=== PATIENT | female | born 1970 | race Caucasian/White ===

== ENCOUNTER → 2016-10-27 | Outpatient (CLI) | payer OTHER | LOC: FIMAGING 16:01 | PROVIDERS: ATTEND Obstetrics & Gynecology | DX: Z12.31 Encounter for screening mammogram for malignant neoplasm of breast (principal) | CPT/HCPCS: G0202 ==

== ENCOUNTER 2017-04-04 05:44 | Day surgery (SDC) | payer OTHER ==
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
[2017-04-04] MEDS ORDERED: LIDOCAINE 1% 2 ML INJ ID PRN (05:47)
[2017-04-04] MEDS ORDERED: LR 1,000 ML IV ONE (05:47)
[2017-04-04] MEDS ORDERED: DOXYCYCLINE INJ 100 MG in NS 250 ML IV ONE (06:00)
[2017-04-04] MEDS ORDERED: MIDAZOLAM 2 MG/2 ML VIAL IVP ONE (07:10)
[2017-04-04] MEDS ORDERED: SILVER NITRATE APPLICATOR 1 APPL TP ONE (07:10)
--- NOTE | 2017-04-04 07:10 | PDANEPAE ---
ANE History of Present Illness hysteroscopy ANE Past Medical History - Cardiovascular History Hx Hypertension: No Hx Arrhythmias: No Hx Coronary Artery / Peripheral Vascular Disease: No Hx CHF / Valvular Disease: No Hx Palpitations: No - Pulmonary History Hx COPD: No Hx Asthma/Reactive Airway Disease: No Hx Recent Upper Respiratory Infection: No Hx Oxygen in Use at Home: No Hx Sleep Apnea: No Sleep Apnea Screening Result - Last Documented: Negative - Neurologic History Hx Cerebrovascular Accident: No - Endocrine History Hx Diabetes: No - Renal History Hx Renal Disorders: No - Liver History Hx Hepatic Disorders: No - Cancer History Hx Cancer: No - Congenital Disorder History Hx Congenital Disorders: No - GI History Hx Gastrointestinal Disorders: No - Surgical History Prior Surgeries: ACL 1991. Shoulder 2016. breast reduction 1988 ANE Review of Systems Review of Systems: - Exercise capacity Exercise capacity: >=4 METS METS (RN): 6 METS ANE Patient History - Allergies Allergies/Adverse Reactions: No Known Allergies Allergy (Unverified 08/14/13 20:25) - Home Medications Home Medications: NK [No Known Home Meds] 08/14/13 [Last Taken Unknown] - NPO status NPO Since - Liquids (Date): 04/03/17 NPO Since - Liquids (Time): 20:00 NPO Since - Solids (Date): 04/03/17 NPO Since - Solids (Time): 19:00 - Anes Hx Anes Hx: no prior problems - Smoking Hx Smoking Status: Never smoked - Family Anes Hx Family Hx Anesthesia Complications: none ANE Labs/Vital Signs - Vital Signs Blood Pressure: 121/80 Heart Rate: 71 Respiratory Rate: 16 O2 Sat (%): 98 Height: 154.94 cm Weight: 52.163 kg ANE Physical Exam - Airway Mallampati Score: Class 2 Mouth exam: normal dental/mouth exam - Pulmonary Pulmonary: no respiratory distress - Cardiovascular Cardiovascular: regular rate and rhythym - ASA Status ASA Status: I ANE Anesthesia Plan Anesthesia Plan: GA w LMA
[2017-04-04] MEDS ORDERED: DEXAMETHASONE 4 MG/ML VIAL ONE (07:21)
[2017-04-04] MEDS ORDERED: fentaNYL 100 MCG/2 ML INJ ONE ×2 (07:21→08:44)
[2017-04-04] MEDS ORDERED: ONDANSETRON 4 MG/2 ML VIAL ONE (07:21)
[2017-04-04] MEDS ORDERED: LIDOCAINE 2% 5 ML SDV ONE (07:21)
[2017-04-04] MEDS ORDERED: PROPOFOL 200 MG/20 ML VIAL ONE (07:21)
[2017-04-04] MEDS ORDERED: KETOROLAC 30 MG/1 ML SDV ONE (07:21)
[2017-04-04] MEDS ORDERED: METOPROLOL TARTRATE 5 MG/5 ML INJ ONE (07:48)
[2017-04-04] MEDS ORDERED: IBUPROFEN 600 MG TAB PO PRN (08:41)
--- NOTE | 2017-04-04 08:41 | PDHPUP ---
History & Physical Update H&P update statement: This history and physical update is based on an assessment of the patient which was completed after admission or registration (within 24 hours), but prior to the surgery/procedure.
[2017-04-04] MEDS ORDERED: HYDROCODONE/APAP 5/325 TAB PO PRN (08:42)
[2017-04-04] MEDS ORDERED: ONDANSETRON 4 MG/2 ML VIAL IVP PRN (08:44)
[2017-04-04] MEDS ORDERED: ALBUTEROL 3 ML DEYVIAL IH PRN (08:44)
[2017-04-04] MEDS ORDERED: MEPERIDINE 25 MG/ML SYR IVP PRN (08:44)
[2017-04-04] MEDS ORDERED: LR 500 ML IV PRN (08:44)
[2017-04-04] MEDS ORDERED: NALOXONE HCL 0.4 MG/ML INJ IVP PRN (08:44)
[2017-04-04] MEDS ORDERED: fentaNYL 100 MCG/2 ML INJ IVP PRN (08:44)
[2017-04-04] MEDS ORDERED: HYDROmorphONE/DILAUDID 1 MG/ML INJ IVP PRN (08:44)
--- NOTE | 2017-04-04 08:45 | POSTOPPROG ---
Post Op Note Date of Operation: 04/04/17 Surgeon: Viridiana Burciaga Anesthesiologist: Dr. Cameron Wilde Anesthesia: GET(General Endotracheal) Pre-op Diagnosis: menorrhagia Post-op Diagnosis: same Procedure: hysteroscopy dilation and currettage, polypectomy, endometrial ablation Findings: arcuate shaped uterus with abundant endometrial tissue Inf/Abcess present in the surg proc area at time of surgery?: No Depth: Organ Space EBL: Minimal Total fluids administered: 800 Specimen(s): endometrial curettings
--- NOTE | 2017-04-04 08:46 | POSTANESTH ---
Post Anesthetic Evaluation Cardiovascular Status: Normal, Stable Respiratory Status: Normal, Stable Level of Consciousness/Mental Status: Can Participate in Eval Pain Control: Adequate, Prn Tx Ordered Nausea/Vomiting Control: Adequate, Prn Tx Ordered Complications Possibly Related to Anesthesia: None Noted
[2017-04-04 10:15] VITALS: RESP 16
[2017-04-04 10:52] VITALS: BP 114/71; PULSE 80; TEMP 98.4; O2SAT 98
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
== END 2017-04-04 10:48 | disposition home or self-care (01) ==
LOC: FSGY 05:44
PROVIDERS: ATTEND Obstetrics & Gynecology
PROC: 0UDB8ZX Extraction of Endometrium, Via Natural or Artificial Opening Endoscopic, Diagnostic (ICD-10-PCS; principal; 2017-04-04 07:15)
PROC: 0U5B8ZZ Destruction of Endometrium, Via Natural or Artificial Opening Endoscopic (ICD-10-PCS; principal; 2017-04-04 07:15)
DX: N92.0 Excessive and frequent menstruation with regular cycle (principal); Q51.810 Arcuate uterus
CPT/HCPCS: 58563; C1782; J1100; J1885; J2250; J2405; J2704; J3010

== ENCOUNTER → 2017-11-02 | Outpatient (CLI) | payer OTHER | LOC: FIMAGING 08:18 | PROVIDERS: ATTEND Obstetrics & Gynecology | DX: Z12.31 Encounter for screening mammogram for malignant neoplasm of breast (principal) ==